=== PATIENT | male | born 1945 | race Caucasian/White ===

== ENCOUNTER 2023-09-19 11:08 | Outpatient (AMB) | payer OTHER, SELFPAY ==
--- NOTE | 2023-09-19 11:19 | A.OFFVIS_ITS ---
Intake Vital Signs 09/19/23 11:37 09/19/23 11:52 09/19/23 12:44 Height 5 ft 8 in Weight 213 lb 6.519 oz BMI 32.4 BP 140/65 H 156/72 H 139/77 Blood Pressure Location Rt brachial Lt brachial Lt brachial Position Sitting Sitting Sitting Pulse 60 60 61 Intake Visit Reasons: IBS, Abd pain Intake Note: Patient presents to in office visit today as a new patient referred for IBS and abdominal pain. CC: Patient states he was diagnosed with IBS a long time ago and since them every time he has a GI issue this is attributed to IBS. Patient c/o RUQ abdominal pain, lower back pain, a lot of gas, and gas pain that goes all the way up to his shoulders. Pt states symptoms have gotten worse recently. Last colonoscopy was done on 03/27/22 and he was found to have diverticulosis. He also states having hemorrhoids and occasional blood from them. 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 He is referred by BRADEN Ramos of [facility]. PMX SANDRITA Ischemic cardiomyopathy Coronary artery disease Diabetes COPD High cholesterol History of [place] Nephrolithiasis GERD Depression/anxiety BPH OBESITY * THE SURGICAL HISTORY Tonsillectomy and adenoidectomy CABG COLONOSCOPY-2011 * THE ALLERGIES: NKDA * Original LABS: none in our system CT ABDOMEN PELVIS-02/27/2021-[facility] Enhance to [place], gallbladder, spleen within normal limits Chronic pancreatic parent time will volume loss/fatty infiltrate without mamadou pancreatic fat stranding. Chronic mild bilateral adrenal gland nodularity Moderate abdominal 8 order an iliac artery arthrosclerotic calcification Kidneys normal in size and position without hydronephrosis interval resolution of left-sided obstructive uropathy No intra-abdominal free air. No lymphadenopathy by CT. No peripherally enhancing drainable fluid collection. Colonic diverticulosis (sigmoid colon) without acute diverticulitis. 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 TODAY'S VISIT hE IS HERE TODAY WITH HIS WHO IS SUPPORTIVE He has been having pain in the lower bowel for many years and he has been told it is IBS. He has been told to live with it. He has had a couple of colonoscopies in [place] with Dr. Reddy. Apparently, all were negative except for TICS, last being about 1.5 years ago. His bowels vary between CIC and diarrhea but he is most bothered by the CIC phase. Recently, the pain has been increasing, and it radiates to his lower back, but he also has OA of the hips and he is unsure what provokes what. It seems worse on the right side and he has pain daily, but some days it is minor and about 2-3 days a week it will be severe. He thinks it may be worse in the CIC phase, and the pain is relieved by laying down and applying heat. He had a trial of bentyl but this just made the CIC worse. Recently, he has had a lot of gas and bloating. This does not seem to be r/t types of foods eaten. The pain ranges from 2-3/10 to 8/10 at its worse. He will have sharp pains like lightening that move around the abdomen that don't last long but will make him cry out. He also has bad trouble with hemorrhoids. Recently, he had an EGD r/t swallowing problems with solid foods and with with liquids getting stuck at the [facility]. He thinks he may have been dilated but he is unsure. He has to eat very slowly. I do not want to do anything until I can get the records from Dr. Reddy's office hopefully we can get at least the endoscopy report and see if there is any barium swallow to try to identify why he has the swallowing issues. It also would be interesting to see if he visualize any abnormality of the ileocecal area. A I educate the patient and his about the finding on the 2020 CT scan and if this is found to still be true on another CT scan the solution to his problems may be surgical. This usually unusual to be able to resolve symptoms of somebody who is suffering from this type of congenital aberration without surgery. ROV after CT PFSH Surgical History History of esophagogastroduodenoscopy (EGD) H/O colonoscopy Hx of CABG History of tonsillectomy and adenoidectomy Family History Brother Heart disease Social History Alcohol intake: never Patient Tobacco Use Status: Former Tobacco user Years Smoked: 14-15 Non Cigarette Tobacco use Quit date or years: quit on 1983 Use of substances other than those prescribed or required for medical reasons: No Review of Systems Const Denies fatigue, Denies fever(s), Denies night sweats, Denies poor appetite and Denies weight loss ENT Reports Normal hearing present, Denies dental pain, Reports dysphagia, Denies hearing loss, Denies mouth pain, Denies odynophagia, Denies throat swelling, Denies tongue swelling and Reports other (Dentition adequate) Card Reports no additional complaints Resp Reports no additional complaints GI Reports abdominal pain, Denies melena, Reports bloating, Denies hematochezia, Denies constipation, Denies GI cramping, Reports dysphagia, Denies excessive flatus, Denies early satiety, Denies heartburn, Reports diarrhea, Reports loose stools, Denies nausea, Denies odynophagia, Denies vomiting and Denies hematemesis Musc Reports back pain and Reports arthralgias Skin/Breast Denies pruritus, Denies lesions, Denies rash and Denies jaundice Neuro Reports Normal hearing present and Denies Abnormal speech present Endo Denies fatigue Aller/Immun Denies throat swelling and Denies tongue swelling Physical Exam Vital Signs: Last Vital Signs Pulse 61 09/19/23 12:44 BP 139/77 09/19/23 12:44 BMI result Body Mass Index 32.4 Const General: cooperative, no acute distress, well developed and well groomed Nutritional Appearance: well nourished and obese Orientation/consciousness: oriented to person, oriented to place and oriented to time Limitations: No language barrier HEENT Head: Yes normocephalic and Yes atraumatic Eyes General: appearance normal, both eyes and all related structures Pupils: Equal, round and reactive pupils present Neck Neck: Yes normal visual inspection and Yes no lymphadenopathy Thyroid: Thyroid normal Resp Effort & Inspection: normal respiratory effort and able to speak in complete sentences Auscultation: clear to auscultation bilaterally Cardio Rate: regular rate Rhythm: regular rhythm Heart sounds: Normal, physiologic split S2 sound present Peripheral pulses: radial pulses present and posterior tibial pulses present GI Inspection: No distended, No Abdominal panniculus present and Yes obesity Palpation (GI): Soft to palpation, Tenderness to palpation present (GI) in the RLQ and periumbilically, no guarding, not rigid and No hepatosplenomegaly present Percussion: Yes normal to percussion Auscultation: normal bowel sounds Rectal Exam - Male: Yes deferred Skin General skin exam: no rashes or lesions noted, turgor normal, skin not dry, no jaundice, No spider nevi and no striae Rashes: no rashes Nails: normal Neuro General: oriented to person, oriented to place and oriented to time Cranial nerves: Yes Equal, round and reactive pupils present and Yes Normal hearing present Speech: No Abnormal speech present Extrem General: Yes normal to inspection, No clubbing, No cyanosis and No edema Psych Appearance: grossly normal and well kempt Mental Status: mental status grossly normal Speech and movement: Normal speech and movement present Affect: normal affect Attitude: cooperative Thought process: Normal thought process present and not confabulating Thought content: Normal thought content present Insight: Limited insight present (Psych) Judgement: Limited judgement present (Psych) Assessment & Plan Assessment & Plan (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 He has been told to live with it. He has had a couple of colonoscopies in [place] with Dr. Reddy. Apparently, all were negative except for TICS, last being about 1.5 years ago. His bowels vary between CIC and diarrhea but he is most bothered by the CIC phase. Recently, the pain has been increasing, and it radiates to his lower back, but he also has OA of the hips and he is unsure what provokes what. It seems worse on the right side and he has pain daily, but some days it is minor and about 2-3 days a week it will be severe. He thinks it may be worse in the CIC phase, and the pain is relieved by laying down and applying heat. He had a trial of bentyl but this just made the CIC worse. Recently, he has had a lot of gas and bloating. This does not seem to be r/t types of foods eaten. The pain ranges from 2-3/10 to 8/10 at its worse. He will have sharp pains like lightening that move around the abdomen that don't last long but will make him cry out. He also has bad trouble with hemorrhoids. Recently, he had an EGD r/t swallowing problems with solid foods and with with liquids getting stuck at the [facility]. He thinks he may have been dilated but he is unsure. He has to eat very slowly. I do not want to do anything until I can get the records from Dr. Reddy's office hopefully we can get at least the endoscopy report and see if there is any barium swallow to try to identify why he has the swallowing issues. It also would be interesting to see if he visualize any abnormality of the ileocecal area. A I educate the patient and his about the finding on the 2020 CT scan and if this is found to still be true on another CT scan the solution to his problems may be surgical. This usually unusual to be able to resolve symptoms of somebody who is suffering from this type of congenital aberration without surgery. ROV after CT Orders: Orders Transglutaminase IgA Today K56.2 - Volvulus, R10.33 - Periumbilical pain C Reactive Protein Today K56.2 - Volvulus, R10.33 - Periumbilical pain Pancreatic Elastase-1 Today K56.2 - Volvulus, R10.33 - Periumbilical pain Comprehensive Met. Panel Today K56.2 - Volvulus, R10.33 - Periumbilical pain Transglutaminase Ab IgG Today K56.2 - Volvulus, R10.33 - Periumbilical pain Calprotectin, Fecal Today K56.2 - Volvulus, R10.33 - Periumbilical pain CT abdomen pelvis w IV con Today K56.2 - Volvulus, R10.33 - Periumbilical pain Coding Level of Care Code New Pt Level 3 (60608) Diagnoses Cecal bascule K56.2 Periumbilical abdominal pain R10.33
[2023-09-19 11:37] VITALS: BP 140/65; PULSE 60; BMI 32.4
[2023-09-19 11:52] VITALS: BP 156/72; PULSE 60
[2023-09-19 12:44] VITALS: BP 139/77; PULSE 61
== END 2023-09-19 12:48 | disposition home or self-care (01) ==
PROVIDERS: PCP Internal Medicine; Visit Provider Nurse Practitioner
DX: K56.2 Volvulus (principal); R10.33 Periumbilical pain
CPT/HCPCS: 99203

== ENCOUNTER → 2023-09-19 11:08 | Outpatient (BNVA) | payer OTHER, SELFPAY | PROVIDERS: PCP Internal Medicine; Visit Provider Nurse Practitioner ==

== ENCOUNTER 2023-10-30 12:50 | Outpatient (REF) | payer MEDICARE, SELFPAY ==
--- NOTE | ~2023-10-30 | CT_ITS ---
EXAMINATION: CT ABDOMEN AND PELVIS WITH CONTRAST CLINICAL INFORMATION: Periumbilical pain COMPARISON: None available. TECHNIQUE: Multidetector volumetric images were obtained from the superior aspect of the liver through the pubic symphysis following administration 85 mL of Omnipaque 350 intravenous contrast. Sagittal and coronal reformatted images were obtained on the technologist's workstation. Oral contrast: No This CT examination was performed using dose optimization techniques as appropriate, variously including the following: *Automated exposure control *Adjustment of mA and/or kV according to patient size (this includes techniques or standardized protocols for targeted exams where dose is matched to indication/reason for exam; i.e. extremities or head) *Use of iterative reconstruction technique DLP: 616 mGy-cm FINDINGS: LUNG BASES: The visualized lung bases are unremarkable. LIVER, GALLBLADDER, AND BILIARY TREE: The liver is normal in size, shape, and attenuation. No focal hepatic lesion or biliary ductal dilatation is present. The gallbladder is unremarkable with no evidence of radiopaque gallstones, gallbladder wall thickening, or obvious pericholecystic inflammatory changes. PANCREAS: Unremarkable. SPLEEN: Unremarkable. ADRENAL GLANDS: Unremarkable. KIDNEYS AND URETERS: The kidneys are normal in size, shape, and attenuation. No hydronephrosis, hydroureter, or calculi seen. No perinephric stranding. BLADDER: Unremarkable. GASTROINTESTINAL TRACT: The stomach and duodenum are unremarkable. The large and small bowel are normal in caliber. Colonic diverticulosis without evidence to suggest diverticulitis. ABDOMINAL WALL: No ventral abdominal wall hernia. Bilateral fat-containing inguinal hernias. LYMPH NODES: Normal. VASCULAR: Unremarkable. PELVIC VISCERA: The prostate is enlarged. OSSEOUS STRUCTURES: Unremarkable. CT/CT abdomen pelvis w IV con IMPRESSION: 1. No ventral or periumbilical abdominal hernia. 2. Diverticulosis without evidence of diverticulitis. 3. Prostatomegaly. Fleischner guidelines were followed.
--- NOTE | ~2023-10-30 | CT_ITS ---
EXAMINATION: CT MAXILLOFACIAL WITHOUT CONTRAST CLINICAL INFORMATION: Sinonasal polyp. Acute sinusitis. COMPARISON: None available. TECHNIQUE: Multidetector helical imaging was performed in the axial plane with generation of coronal and sagittal reformatted images. This CT examination was performed using dose optimization techniques as appropriate, variously including the following: *Automated exposure control. *Adjustment of mA and/or kV according to patient size (this includes techniques or standardized protocols for targeted exams where dose is matched to indication/reason for exam; i.e. extremities or head). *Use of iterative reconstruction technique. DLP: 616 mGy-cm FINDINGS: FRONTAL SINUSES AND DRAINAGE PATHWAYS: Minimal mucosal thickening of the frontal sinuses. The frontoethmoidal recesses are patent. MAXILLARY SINUSES AND DRAINAGE PATHWAYS: Minimal mucosal thickening of the maxillary sinuses. The maxillary ostia and infundibula are patent. ETHMOID SINUSES: Minimal mucosal thickening of the ethmoid air cells. The ethmoid roofs appear symmetric and intact. SPHENOID SINUS AND DRAINAGE PATHWAYS: The sphenoid sinus is clear. The sphenoethmoidal recesses are patent. NASAL PASSAGE: Mild mucosal thickening of the nasal passages. Moderate leftward nasal septal deviation with spurring. ADDITIONAL RELEVANT FINDINGS: The lamina papyracea are intact. Bilateral lens extractions. Otherwise, no demonstrated abnormalities of the orbits. The carotid canals are normally covered by bone. No significant maxillary periapical disease. The temporomandibular joints are normal. The mastoid air cells and middle ear cavities remain well aerated. Calcific atherosclerotic disease of the intracranial internal carotid and vertebral arteries. Proportional prominence of the ventricles and sulcal spaces without evidence of obstructive hydrocephalus. Otherwise, limited evaluation of the intracranial structures without significant abnormalities. CT/CT sinus wo IV con IMPRESSION: 1. Mild sinonasal mucosal disease. 2. Moderate leftward nasal septal deviation with spurring.
[2023-10-30 15:45] LABS: Alanine Aminotransferase 14 U/L (0-40); Albumin Level 4.4 g/dL (3.5-5.0); Alkaline Phosphatase 49 U/L (39-117); Anion Gap 11 (12-20); Aspartate Amino Transferase 17 U/L (5-37); Bilirubin Total 0.6 mg/dL (0.0-1.0); Blood Urea Nitrogen 15 mg/dL (9-16); C Reactive Protein < 0.04 mg/dL (< or = 0.50); Calcium 11.3 mg/dL (8.4-10.2); Carbon Dioxide 28 mmol/L (22-29); Chloride 107 mmol/L (96-108); Estimated Glomerular Filt Rate > 60; Glucose Random 109 mg/dL (60-115); Potassium 4.3 mmol/L (3.3-5.1); Sodium 142 mmol/L (135-145); Total Protein 7.7 g/dL (6.5-8.0)
[2023-10-30] MEDS: iohexoL 350 MG/ML 75 ML INFUS..BTL 85 ML IV (16:02)
[2023-10-30] MEDS: Barium Sulfate Oral (Mocha) 450 ML ORAL.SUSP 900 ML PO (16:02)
[2023-10-31 12:43] LABS: Creatinine POC 0.8 mg/dL (0.5-1.4); GFR POC > 60
[2023-10-31 19:34] LABS: Transglutaminase Ab IgG <1.0 U/mL; Transglutaminase IgA <1.0 U/mL
== END 2023-10-30 12:51 | disposition home or self-care (01) ==
LOC: HO.CT 12:50
PROVIDERS: PCP Internal Medicine; Visit Provider Nurse Practitioner
DX: R10.33 Periumbilical pain (principal); K56.2 Volvulus; J33.0 Polyp of nasal cavity; J01.90 Acute sinusitis, unspecified
CPT/HCPCS: 36415; 70486; 74177; 80053; 82565; 86140; 86364; Q9967

== ENCOUNTER 2023-12-10 10:32 | Outpatient (AMB) | payer MEDICARE, SELFPAY ==
--- NOTE | 2023-12-10 10:37 | MHC.OFFVIS ---
Intake Vital Signs 12/10/23 11:05 Height 5 ft 8 in Weight 214 lb 11.684 oz BMI 32.6 BP 144/83 H Blood Pressure Location Lt brachial Position Sitting Pulse 63 Intake Visit Reasons: Follow up Intake Note: Dixon returns to in office follow up of CT and labs. CC: Patient reports feeling the same having gas, abdominal pain, and lower back pain. 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 He has been told to live with it. He has had a couple of colonoscopies in [place] with Dr. Reddy. Apparently, all were negative except for TICS, last being about 1.5 years ago. His bowels vary between CIC and diarrhea but he is most bothered by the CIC phase. Recently, the pain has been increasing, and it radiates to his lower back, but he also has OA of the hips and he is unsure what provokes what. It seems worse on the right side and he has pain daily, but some days it is minor and about 2-3 days a week it will be severe. He thinks it may be worse in the CIC phase, and the pain is relieved by laying down and applying heat. He had a trial of bentyl but this just made the CIC worse. Recently, he has had a lot of gas and bloating. This does not seem to be r/t types of foods eaten. The pain ranges from 2-3/10 to 8/10 at its worse. He will have sharp pains like lightening that move around the abdomen that don't last long but will make him cry out. He also has bad trouble with hemorrhoids. Recently, he had an EGD r/t swallowing problems with solid foods and with with liquids getting stuck at the [facility]. He thinks he may have been dilated but he is unsure. He has to eat very slowly. I do not want to do anything until I can get the records from Dr. Reddy's office hopefully we can get at least the endoscopy report and see if there is any barium swallow to try to identify why he has the swallowing issues. It also would be interesting to see if he visualize any abnormality of the ileocecal area. A I educate the patient and his about the finding on the 2020 CT scan and if this is found to still be true on another CT scan the solution to his problems may be surgical. This usually unusual to be able to resolve symptoms of somebody who is suffering from this type of congenital aberration without surgery. ROV after CT Orders: Orders Transglutaminase I gA Today K56.2 - Volvulus, R10.33 - Periumbil ical pain C Reactive Protein Today K56.2 - Volvulus, R10.33 - Periumbil ical pain Pancreatic Elastas e-1 Today K56.2 - Volvulus, R10.33 - Periumbil ical pain Comprehensive Met. Panel Today K56.2 - Volvulus, R10.33 - Periumbil ical pain Transglutaminase A b IgG Today K56.2 - Volvulus, R10.33 - Periumbil ical pain Calprotectin, Feca l Today K56.2 - Volvulus, R10.33 - Periumbil ical pain CT abdomen pelvis w IV con Today K56.2 - Volvulus, R10.33 - Periumbil ical pain LABS: Laboratory Tests 10/30/23 10/30/23 13:15 15:34 POC GFR > 60 Total Bilirubin 0.6 AST 17 ALT 14 Alkaline Phosphata se 49 C-Reactive Protein < 0.04 Tiss Transglutamin IgG <1.0 Tiss Transglutamin IgA <1.0 CT ABDOMEN AND PELVIS. 10/31/23 FINDINGS: LUNG BASES: The visualized lung bases are unremarkable. LIVER, GALLBLADDER, AND BILIARY TREE: The liver is normal in size, shape, and attenuation. No focal hepatic lesion or biliary ductal dilatation is present. The gallbladder is unremarkable with no evidence of radiopaque gallstones, gallbladder wall thickening, or obvious pericholecystic inflammatory changes. PANCREAS: Unremarkable. SPLEEN: Unremarkable. ADRENAL GLANDS: Unremarkable. KIDNEYS AND URETERS: The kidneys are normal in size, shape, and attenuation. No hydronephrosis, hydroureter, or calculi seen. No perinephric stranding. BLADDER: Unremarkable. GASTROINTESTINAL TRACT: The stomach and duodenum are unremarkable. The large and small bowel are normal in caliber. Colonic diverticulosis without evidence to suggest diverticulitis. ABDOMINAL WALL: No ventral abdominal wall hernia. Bilateral fat-containing inguinal hernias. LYMPH NODES: Normal. VASCULAR: Unremarkable. PELVIC VISCERA: The prostate is enlarged. OSSEOUS STRUCTURES: Unremarkable. CT/CT abdomen pelvis w IV con IMPRESSION: 1. No ventral or periumbilical abdominal hernia. 2. Diverticulosis without evidence of diverticulitis. 3. Prostatomegaly. TODAY'S VISIT He has not done the stool samples. [address] and he has bilateral inguinal hernias, no ventral hernia and his mid abd problems are most likely rectus abdominis. I explain that this does not effect his internal organs. He continues on her CIC alt with diarrhea, the CIC phase bothering him the most. We discuss fiber and taking a small amt of Miralax daily (he usually waits until he is very backed up before taking it). His says that the EGD was several yeas ago, and likely was at [facility] - so getting report may be difficult. Same with the 2020 CT scan. They will check with the PCP for these reports. He does not feel he needs an endoscopy at this time. He says he can live with his dysphagia of pills, but its the mental part of this that bothers me the most, as he tends to worry a lot about cancer if he has more pain or pain that is different than before. He has a lot of health anxiety. He is concerned re: the groin pain. I doubt this is bowel as the pains are GI in origin since this is intermittent and the pains are sharp and short lived. He is already seeing and OA doctor for his bad back and neck, and a urologist which are 2 specialties that I mentioned as possible sources to investigate his pains. ROV 3 mos. PFSH Surgical History History of esophagogastroduodenoscopy (EGD) H/O colonoscopy Hx of CABG History of tonsillectomy and adenoidectomy Family History Brother Heart disease Social History Alcohol intake: never Patient Tobacco Use Status: Former Tobacco user Years Smoked: 14-15 Review of Systems Const Denies fatigue, Denies fever(s), Denies night sweats, Denies poor appetite and Denies weight loss ENT Reports Normal hearing present, Denies dental pain, Reports dysphagia, Denies hearing loss, Denies mouth pain, Denies odynophagia, Denies throat swelling, Denies tongue swelling and Reports other (Dentition adequate) Card Reports no additional complaints Resp Reports no additional complaints GI Details: Denies abdominal pain, Denies melena, Denies bloating, Denies hematochezia, Denies constipation, Denies GI cramping, Reports dysphagia, Denies excessive flatus, Denies early satiety, Reports heartburn, Denies diarrhea, Denies nausea, Denies odynophagia, Denies vomiting and Denies hematemesis Musc Details: Groin pain Skin/Breast Denies pruritus, Denies lesions, Denies rash and Denies jaundice Neuro Reports Normal hearing present and Denies Abnormal speech present Psych Reports anxiety Endo Denies fatigue Aller/Immun Denies throat swelling and Denies tongue swelling Physical Exam Vital Signs: Last Vital Signs Pulse 63 12/10/23 11:05 BP 144/83 H 12/10/23 11:05 BMI result Body Mass Index 32.6 Const General: cooperative, no acute distress, well developed and well groomed Nutritional Appearance: well nourished and obese Orientation/consciousness: oriented to person, oriented to place and oriented to time Limitations: No language barrier HEENT Head: Yes normocephalic and Yes atraumatic Eyes General: appearance normal, both eyes and all related structures Pupils: Equal, round and reactive pupils present Neck Neck: Yes normal visual inspection and Yes no lymphadenopathy Thyroid: Thyroid normal Resp Effort & Inspection: normal respiratory effort and able to speak in complete sentences Auscultation: clear to auscultation bilaterally Cardio Rate: regular rate Rhythm: regular rhythm Heart sounds: Normal, physiologic split S2 sound present Peripheral pulses: radial pulses present and posterior tibial pulses present GI Inspection: No distended, No Abdominal panniculus present and Yes obesity Palpation (GI): Soft to palpation, nontender, no guarding, not rigid and No hepatosplenomegaly present Percussion: Yes normal to percussion Auscultation: normal bowel sounds Rectal Exam - Male: Yes deferred Skin General skin exam: no rashes or lesions noted, turgor normal, skin not dry, no jaundice, No spider nevi and no striae Rashes: no rashes Nails: normal Neuro General: oriented to person, oriented to place and oriented to time Cranial nerves: Yes Equal, round and reactive pupils present and Yes Normal hearing present Speech: No Abnormal speech present Extrem General: Yes normal to inspection, No clubbing, No cyanosis and No edema Psych Appearance: grossly normal and well kempt Mental Status: mental status grossly normal Speech and movement: Normal speech and movement present Affect: normal affect Attitude: cooperative Thought process: Normal thought process present and not confabulating Thought content: Normal thought content present Insight: Limited insight present (Psych) Judgement: Limited judgement present (Psych) Results Reviewed Results Reviewed: Laboratory Tests 10/30/23 10/30/23 13:15 15:34 POC GFR > 60 Total Bilirubin 0.6 AST 17 ALT 14 Alkaline Phosphatase 49 C-Reactive Protein < 0.04 Tiss Transglutamin IgG <1.0 Tiss Transglutamin IgA <1.0 CT ABDOMEN AND PELVIS. 10/31/23 FINDINGS: LUNG BASES: The visualized lung bases are unremarkable. LIVER, GALLBLADDER, AND BILIARY TREE: The liver is normal in size, shape, and attenuation. No focal hepatic lesion or biliary ductal dilatation is present. The gallbladder is unremarkable with no evidence of radiopaque gallstones, gallbladder wall thickening, or obvious pericholecystic inflammatory changes. PANCREAS: Unremarkable. SPLEEN: Unremarkable. ADRENAL GLANDS: Unremarkable. KIDNEYS AND URETERS: The kidneys are normal in size, shape, and attenuation. No hydronephrosis, hydroureter, or calculi seen. No perinephric stranding. BLADDER: Unremarkable. GASTROINTESTINAL TRACT: The stomach and duodenum are unremarkable. The large and small bowel are normal in caliber. Colonic diverticulosis without evidence to suggest diverticulitis. ABDOMINAL WALL: No ventral abdominal wall hernia. Bilateral fat-containing inguinal hernias. LYMPH NODES: Normal. VASCULAR: Unremarkable. PELVIC VISCERA: The prostate is enlarged. OSSEOUS STRUCTURES: Unremarkable. CT/CT abdomen pelvis w IV con IMPRESSION: 1. No ventral or periumbilical abdominal hernia. 2. Diverticulosis without evidence of diverticulitis. 3. Prostatomegaly. Assessment & Plan Assessment & Plan (1) Bilateral inguinal hernia: Code(s): K40.20 - Bilateral inguinal hernia, without obstruction or gangrene, not specified as recurrent (2) Periumbilical abdominal pain: Code(s): R10.33 - Periumbilical pain (3) Irritable bowel syndrome with both constipation and diarrhea: Code(s): K58.2 - Mixed irritable bowel syndrome Plan He has not done the stool samples. [address] and he has bilateral inguinal hernias, no ventral hernia and his mid abd problems are most likely rectus abdominis. I explain that this does not effect his internal organs. He continues on her CIC alt with diarrhea, the CIC phase bothering him the most. We discuss fiber and taking a small amt of Miralax daily (he usually waits until he is very backed up before taking it). His says that the EGD was several yeas ago, and likely was at [facility] - so getting report may be difficult. Same with the [address] scan[address] They will check with the PCP for these reports. He does not feel he needs an endoscopy at this time. He says he can live with his dysphagia of pills, but its the mental part of this that bothers me the most, as he tends to worry a lot about cancer if he has more pain or pain that is different than before. He has a lot of health anxiety. He is concerned re: the groin pain. I doubt this is bowel as the pains are GI in origin since this is intermittent and the pains are sharp and short lived. He is already seeing and OA doctor for his bad back and neck, and a urologist which are 2 specialties that I mentioned as possible sources to investigate his pains. ROV 3 mos. Orders: Referrals General Surgery Referral K40.20 - Bilateral inguinal hernia, without obstruction or gangrene, not specified as recurrent Coding Level of Care Code Est Pt Level 3 (83546) Diagnoses Bilateral inguinal hernia K40.20 Periumbilical abdominal pain R10.33 Irritable bowel syndrome with both constipation and diarrhea K58.2
[2023-12-10 11:05] VITALS: BP 144/83; PULSE 63; BMI 32.6
== END 2023-12-10 12:20 | disposition home or self-care (01) ==
PROVIDERS: PCP Internal Medicine; Visit Provider Nurse Practitioner
DX: K40.20 Bilateral inguinal hernia, without obstruction or gangrene, not specified as recurrent (principal); R10.33 Periumbilical pain; K58.2 Mixed irritable bowel syndrome
CPT/HCPCS: 99213

== ENCOUNTER → 2023-12-10 10:32 | Outpatient (BNVA) | payer MEDICARE, SELFPAY | PROVIDERS: PCP Internal Medicine; Visit Provider Nurse Practitioner | DX: K40.20 Bilateral inguinal hernia, without obstruction or gangrene, not specified as recurrent (principal); R10.33 Periumbilical pain; K58.2 Mixed irritable bowel syndrome | CPT/HCPCS: 99212 ==

== ENCOUNTER 2024-03-11 10:11 | Outpatient (AMB) | payer MEDICARE, SELFPAY ==
[2024-03-11 10:15] VITALS: BP 140/74; PULSE 64; BMI 32.8
--- NOTE | 2024-03-11 10:15 | MHC.OFFVIS ---
Vital Signs 03/11/24 10:15 Height 5 ft 8 in Weight 215 lb 9.793 oz BMI 32.8 BP 140/74 H Blood Pressure Location Lt brachial Position Sitting Pulse 64 Intake Visit Reasons: 3 month follow up IBS-M, GERD Intake Note: Dixon presents in office 3 months follow up of IBS. CC: Patient c/o nausea occaionaly, constipation, gas, abdominal bloating, and occasional diarrhea. 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 [address] and he has bilateral inguinal hernias, no ventral hernia and his mid abd problems are most likely rectus abdominis. I explain that this does not effect his internal organs. He continues on her CIC alt with diarrhea, the CIC phase bothering him the most. We discuss fiber and taking a small amt of Miralax daily (he usually waits until he is very backed up before taking it). His says that the EGD was several yeas ago, and likely was at [facility] - so getting report may be difficult. Same with the [address] scan[address] They will check with the PCP for these reports. He does not feel he needs an endoscopy at this time. He says he can live with his dysphagia of pills, but its the mental part of this that bothers me the most, as he tends to worry a lot about cancer if he has more pain or pain that is different than before. He has a lot of health anxiety. He is concerned re: the groin pain. I doubt this is bowel as the pains are GI in origin since this is intermittent and the pains are sharp and short lived. He is already seeing and OA doctor for his bad back and neck, and a urologist which are 2 specialties that I mentioned as possible sources to investigate his pains. ROV 3 mos. Orders: Referrals General Surgery Referral K40.20 - Bilateral inguinal hernia, without obstruction or gangrene, not specified as recurrent TODAY'S VISIT He is here today with his who is supportive. HIs bowels are improved with the fiber addition any my grapes. He is using Miralax less because of this. His says his groin pain is worse bilaterally and this may be his hernias - he did not follow through to see surgery about this. Also could be his back problems. I encouraged them to at least speak with General surgery to see if they think this is part of the problem and if surgery is a viable option for him. He is having gait ataxia, falls forward when bending, like I'm drunk but I don't drink and a tremor. [facility] says he needs neurologist but did not refer him. I refer him. ? UC/crohns and this is not likely but we discuss how this is diagnose in why I do not think that this is part of the differential diagnosis. I offered to do stool calprotectin in other labs with a declined at this time. His last colonoscopy 2021 at [facility] and only tics. He has rectal bleeding likely hemorrhoidal - did give stool test. ROV 6 mos. [facility] Surgical History History of esophagogastroduodenoscopy (EGD) H/O colonoscopy Hx of CABG History of tonsillectomy and adenoidectomy Family History Brother Heart disease Social History Alcohol intake: never Patient Tobacco Use Status: Former Tobacco user Years Smoked: 14-15 Review of Systems Const Denies fatigue, Denies fever(s), Denies night sweats, Denies poor appetite and Denies weight loss ENT Reports Normal hearing present, Denies dental pain, Denies dysphagia, Denies hearing loss, Denies mouth pain, Denies odynophagia, Reports disequilibrium, Denies throat swelling, Denies tongue swelling and Reports other (Dentition adequate) Card Reports no additional complaints Resp Reports no additional complaints GI Details: Reports abdominal pain (Mostly in the groin), Denies melena, Denies bloating, Denies hematochezia, Denies constipation, Denies GI cramping, Denies dysphagia, Denies excessive flatus, Denies early satiety, Denies heartburn, Denies diarrhea, Denies nausea, Denies odynophagia, Denies vomiting and Denies hematemesis Musc Reports abnormal gait, Reports back pain, Reports myalgias, Reports arthralgias and Reports muscle weakness Skin/Breast Denies pruritus, Denies lesions, Denies rash and Denies jaundice Neuro Reports Normal hearing present, Denies Abnormal speech present, Reports abnormal gait, Reports lack of coordination and Reports disequilibrium Endo Denies fatigue Aller/Immun Denies throat swelling and Denies tongue swelling Physical Exam Vital Signs: Last Vital Signs Pulse 64 03/11/24 10:15 BP 140/74 H 03/11/24 10:15 BMI result Body Mass Index 32.8 Const General: cooperative, no acute distress, well developed and well groomed Nutritional Appearance: well nourished and obese Orientation/consciousness: oriented to person, oriented to place and oriented to time Limitations: No language barrier HEENT Head: Yes normocephalic and Yes atraumatic Eyes General: appearance normal, both eyes and all related structures Pupils: Equal, round and reactive pupils present Neck Neck: Yes normal visual inspection and Yes no lymphadenopathy Thyroid: Thyroid normal Resp Effort & Inspection: normal respiratory effort and able to speak in complete sentences Auscultation: clear to auscultation bilaterally Cardio Rate: regular rate Rhythm: regular rhythm Heart sounds: Normal, physiologic split S2 sound present Peripheral pulses: radial pulses present and posterior tibial pulses present GI Inspection: No distended, No Abdominal panniculus present and Yes obesity Palpation (GI): Soft to palpation, nontender, no guarding, not rigid and No hepatosplenomegaly present Percussion: Yes normal to percussion Auscultation: normal bowel sounds Rectal Exam - Male: Yes deferred Skin General skin exam: no rashes or lesions noted, turgor normal, skin not dry, no jaundice, No spider nevi and no striae Rashes: no rashes Nails: normal Neuro General: oriented to person, oriented to place and oriented to time Cranial nerves: Yes Equal, round and reactive pupils present and Yes Normal hearing present Speech: No Abnormal speech present Extrem General: Yes normal to inspection, No clubbing, No cyanosis and No edema Psych Appearance: grossly normal and well kempt Mental Status: mental status grossly normal Speech and movement: Slowed speech present (Psych) Affect: normal affect Attitude: cooperative Thought process: not confabulating and Impoverished thought process present Thought content: Normal thought content present Insight: Limited insight present (Psych) Judgement: Limited judgement present (Psych) Assessment & Plan Assessment & Plan (1) Irritable bowel syndrome with both constipation and diarrhea: Code(s): K58.2 - Mixed irritable bowel syndrome Category: Medical (2) Bilateral inguinal hernia: Code(s): K40.20 - Bilateral inguinal hernia, without obstruction or gangrene, not specified as recurrent Category: Medical (3) Periumbilical abdominal pain: Code(s): R10.33 - Periumbilical pain Category: Medical (4) GERD (gastroesophageal reflux disease): Code(s): K21.9 - Gastro-esophageal reflux disease without esophagitis Category: Medical (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 HIs bowels are improved with the fiber addition any my grapes. He is using Miralax less because of this. His says his groin pain is worse bilaterally and this may be his hernias - he did not follow through to see surgery about this. Also could be his back problems. I encouraged them to at least speak with General surgery to see if they think this is part of the problem and if surgery is a viable option for him. He is having gait ataxia, falls forward when bending, like I'm drunk but I don't drink and a tremor. [facility] tx center says he needs neurologist but did not refer him. I refer him. ? UC/crohns and this is not likely but we discuss how this is diagnose in why I do not think that this is part of the differential diagnosis. I offered to do stool calprotectin in other labs with a declined at this time. His last colonoscopy 2021 at [facility] and only tics. He has rectal bleeding likely hemorrhoidal - did give stool test. ROV 6 mos. Orders: Referrals Neurology Referral R25.1 - Tremor, unspecified, R48.2 - Apraxia Coding Level of Care Code Est Pt Level 3 (44040) Diagnoses Irritable bowel syndrome with both constipation and diarrhea K58.2 Bilateral inguinal hernia K40.20 Periumbilical abdominal pain R10.33 GERD (gastroesophageal reflux disease) K21.9 Gait apraxia R48.2 Tremor R25.1
== END 2024-03-11 11:00 | disposition home or self-care (01) ==
PROVIDERS: PCP Internal Medicine; Visit Provider Nurse Practitioner
DX: K58.2 Mixed irritable bowel syndrome (principal); K40.20 Bilateral inguinal hernia, without obstruction or gangrene, not specified as recurrent; R10.33 Periumbilical pain; K21.9 Gastro-esophageal reflux disease without esophagitis; R48.2 Apraxia; R25.1 Tremor, unspecified
CPT/HCPCS: 99213

== ENCOUNTER → 2024-03-11 10:11 | Outpatient (BNVA) | payer MEDICARE, SELFPAY | PROVIDERS: PCP Internal Medicine; Visit Provider Nurse Practitioner | DX: K58.2 Mixed irritable bowel syndrome (principal); K21.9 Gastro-esophageal reflux disease without esophagitis; K40.20 Bilateral inguinal hernia, without obstruction or gangrene, not specified as recurrent; R10.33 Periumbilical pain; R48.2 Apraxia; R25.1 Tremor, unspecified | CPT/HCPCS: 99212 ==

== ENCOUNTER 2024-04-06 09:14 | Outpatient (AMB) | payer MEDICARE, SELFPAY ==
--- NOTE | 2024-04-06 09:20 | MHC.OFFVIS ---
Vital Signs 04/06/24 09:31 Height 5 ft 8 in Weight 217 lb BMI 33.0 BP 192/84 H Blood Pressure Location Rt brachial Position Sitting Pulse 69 Intake Visit Reasons: Bilateral inguinal hernia Intake Note: Patient referred by Caity Yao PA-C (GI) for bilateral inguinal hernia. Patient c/o: lower abdominal pain that comes and goes. Diarrhea, constipation. ABD CT: 10-30-2023. 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 He is having groin pain left greater than right. He does not do heavy lifting anymore. He does have chronic cough and constipation/GI issues/irritable bowel syndrome With frequent/forcing bowel movements over many years time Patient is otherwise tolerating his diet. Patient has a moderate amount of comorbidities. Patient has listed in his problem list cecal bascule but has never had any abdominal surgery [facility] Surgical History History of esophagogastroduodenoscopy (EGD) H/O colonoscopy Hx of CABG History of tonsillectomy and adenoidectomy Family History Brother Heart disease Social History Alcohol intake: never Patient Tobacco Use Status: Former Tobacco user Years Smoked: 14-15 Physical Exam Vital Signs: Last Vital Signs Pulse 69 04/06/24 09:31 BP 192/84 H 04/06/24 09:31 BMI result Body Mass Index 33.0 Chest Other: Chest breath sounds bilaterally, HS 1 in 2 GI Other: Patient was examined both supine and standing with Valsalva. Abdomen moderately corpulent, benign. No umbilical hernia. Right groin inguinal weakness but no obvious hernia. Genitalia grossly within normal limits. Moderately sized left inguinal hernia reducible Assessment & Plan Assessment & Plan (1) Left inguinal hernia: Code(s): K40.90 - Unilateral inguinal hernia, without obstruction or gangrene, not specified as recurrent Category: Surgical Plan Therapeutic options were discussed with the patient's which include observation or surgical repair. Risks, benefits, and alternatives of open left inguinal hernia repair with mesh were reviewed with them and included but not limited to bleeding, infection, recurrence, numbness, pain, scarring and wished to proceed with the procedure. All questions answered. Arrangements made for this. Coding Level of Care Code New Pt Level 5 (92790) Diagnoses Left inguinal hernia K40.90
[2024-04-06 09:31] VITALS: BP 192/84; PULSE 69; BMI 33.0
== END 2024-04-06 09:55 | disposition home or self-care (01) ==
PROVIDERS: PCP Internal Medicine; Referring Provider Nurse Practitioner; Visit Provider Surgery
DX: K40.90 Unilateral inguinal hernia, without obstruction or gangrene, not specified as recurrent (principal)
CPT/HCPCS: 99204

== ENCOUNTER → 2024-04-06 09:14 | Outpatient (BNVA) | payer MEDICARE, SELFPAY | PROVIDERS: PCP Internal Medicine; Referring Provider Nurse Practitioner; Visit Provider Surgery | DX: K40.90 Unilateral inguinal hernia, without obstruction or gangrene, not specified as recurrent (principal) | CPT/HCPCS: 99202 ==

== ENCOUNTER → 2024-05-27 09:55 | Outpatient (REF) | payer MEDICARE, SELFPAY ==
--- NOTE | 2024-05-27 09:59 | CA_ITS ---
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 Normal LV ejection fraction of 55-60% with pseudonormal filling pattern with elevated LVEDP 2. Mildly dilated left atrium 3. Mild aortic stenosis and mild mitral regurgitation 4. Normal RV systolic pressure 5. No pericardial effusion Findings Procedure Information Contrast agent, definity, is being given per protocol without apparent complications. Left Ventricle Normal left ventricular size, thickness, and systolic function. The visually estimated ejection fraction is between 55-60%. Spectral Doppler is indicative of a pseudonormal filling pattern. Elevated left ventricular end diastolic pressure. E/E prime ratio is between 8 and 15 consistent with indeterminate filling pressures. Wall Motion Rest Echo Findings The basal inferior, basal anterolateral, basal inferoseptal, and basal inferolateral segments are hypokinetic. All other scored wall segments showed normal motion. Right Ventricle Normal right ventricular cavity size and systolic function. Atria The left atrium is mildly dilated. Interatrial shunt cannot be excluded. The right atrium is normal in size. Aortic Valve The aortic valve was not well visualized. There is mild calcification of the aortic valve. There is mild aortic valve stenosis. The peak aortic velocity is 1.79 m/s with a calculated peak gradient of 13 mmHg. The mean gradient is 7 mmHg. The aortic valve area is 1.77 cm2. There is no aortic valve regurgitation. Mitral Valve There is mild anterior and posterior mitral leaflet thickening. There is mild mitral annular calcification. There is mild mitral valve regurgitation. There is no mitral valve stenosis. Pulmonic Valve The pulmonic valve is likely normal. Tricuspid Valve Likely normal tricuspid valve structure and function. There is mild tricuspid valve regurgitation. The right ventricular systolic pressure is normal. The right ventricular systolic pressure is 31 mmHg. Normal right atrial pressure. There is no evidence of pulmonary hypertension. Great Vessels The pulmonary artery was not well visualized. Moderate plaque is seen in the sino tubular ridge. Venous The inferior vena cava is normal in size and collapses greater than 50% with inspiration. Pericardium/Pleural There is no evidence of pericardial effusion. Prior Study Comparison No prior study available for comparison. Measurements 2D Linear Measurements IVSd: 1.12 0.6-0.9/0.6-1.0 cm LVIDd: 4.26 3.9-5.3/4.2-5.9 cm LVIDd Index: 2.00 2.4-3.2/2.2-3.1 cm/m2 LVIDs: 2.84 2.0-3.6 cm LVPWd: 1.14 0.7-1.1 cm LA Diam: 4.10 2.7-3.8/3.0-4.0 cm LAIDs Index: 1.92 1.5-2.3 cm/m2 LV Mass: 207.85 67-162/88-224 g LV Mass Index: 97.58 43-95/49-115 g/m2 LVOT Diam: 2.10 3.0+(-)1.3 cm 2D Systolic Function EF 4C: 57.50 >55% EF 2C: 58.90 >55% EF BiP: 57.40 >55% Mitral Valve MV Pk E: 0.96 MV PK A: 0.56 MV Decel Time: 207.00 E/A: 1.70 E'Lateral: 8.16 E'Medial: 6.09 E/E' Med: 15.80 E/E' Lat: 11.80 PHT: 61.00 MVA PHT: 3.61 Decel [place]: 4.64 Aortic Valve AoV Pk Adalberto: 1.79 AoV Mn Adalberto: 1.19 AoV VTI: 0.40 AoV Pk Grad: 13.00 Aov Mn Grad: 7.00 LUZ Cont.VTI: 1.77 LVOT LVOT Pk Adalberto: 0.92 LVOT Mn Adalberto: 0.65 LVOT VTI: 0.20 LVOT Pk Grad: 3.00 LVOT Mn Grad: 2.00 LVOT Diam: 2.10 LVOT Area: 3.46 Diastolic Function MV Pk E: 0.96 MV Pk A: 0.56 E/A: 1.70 E'Medial: 6.09 E/E' Med: 15.80 E' Laterial: 8.16 E/E' Lat: 11.80 Right Ventricle TAPSE (mm): 18.00 TVS' Adalberto: 8.16 Tricuspid Valve TR Pk Adalberto: 2.40 TR Pk Grad: 23.00 RA Press: 8.00 RVSP: 31.00 Great Vessels Aorta Sinus of Valsalva: 3.29 2.0-3.[address] Ridge: 2.17 1.7-3.4 cm Ao Asc: 3.40 2.1-3.4 cm Updated in Other Vendor System with Status of Final Maximilian Catalan MD electronically signed on 05/27/2024 4:12:47 PM with status of Final
== END ==
LOC: HO.CARD 09:55
PROVIDERS: PCP Internal Medicine; Visit Provider Nurse Practitioner Family
DX: I25.810 Atherosclerosis of coronary artery bypass graft(s) without angina pectoris (principal); I25.5 Ischemic cardiomyopathy; I10 Essential (primary) hypertension
CPT/HCPCS: 93306; Q9957

== ENCOUNTER → 2024-05-27 09:59 | Outpatient (BNV) | payer MEDICARE, SELFPAY | PROVIDERS: PCP Internal Medicine; Visit Provider Internal Medicine Cardiovascular Disease | DX: I25.810 Atherosclerosis of coronary artery bypass graft(s) without angina pectoris (principal); I35.0 Nonrheumatic aortic (valve) stenosis; I34.0 Nonrheumatic mitral (valve) insufficiency; I36.1 Nonrheumatic tricuspid (valve) insufficiency | CPT/HCPCS: 93306 ==

== ENCOUNTER → 2024-06-11 09:37 | Outpatient (REF) | payer MEDICARE, SELFPAY ==
--- NOTE | ~2024-06-11 | NM_ITS ---
Lexiscan Myocardial perfusion study Indication: Preoperative cardiovascular risk stratification Technique: The patient was brought in for a Lexiscan perfusion study on 06/11/2024 and was injected 0.4 mg of Lexiscan intravenously. Within a minute of this injection 35 mCi of sestamibi was given intravenously. Images were obtained using the SPECT gamma camera interlaced with the gating device. Images were obtained in supine position. Resting perfusion study was performed on 06/15/2024. Patient was administered 35 mCi of sestamibi intravenously at rest. Images were then obtained in supine position. Images obtained with and without significant attenuation. Total DLP 159 mGy-cm. Images were processed with the software and compared side to side in short axis, horizontal long axis and vertical long axis views. Findings: The stress perfusion study showed nonattenuated images show mildly increased uptake in the basal inferior wall of the myocardium. Remainder of the LV myocardium is normally perfused. Attenuation corrected images show mildly increased uptake in the apex of the myocardium. The gated study shows mildly reduced LV systolic function with calculated LVEF of 45%. LV cavity is normal in size. The gated study shows normal systolic wall thickening and contraction of segments. Resting study shows no change in perfusion pattern compared to stress perfusion study. Gating at rest reveals normal systolic wall motion with ejection fraction at 48%. The findings are consistent with no evidence of reversible defect suggestive of ischemia. NM/NM jaelyn perf SPECT rest & str Impression: 1. Myocardial perfusion imaging study shows likely normal myocardial perfusion 2. Gated LVEF is 45% 3. Transient ischemic dilatation not present Nondiagnostic on EKG. Electronically signed by: Maximilian Catalan MD 06/15/2024 04:03 PM EDT
--- NOTE | 2024-06-11 09:41 | CA_ITS ---
Acquisition Time: 2024-06-11 09:58:34 Total Exercise Time: 00:02:00 Test Indications: CHEST PAIN, SOB Medications: Protocol: LEXISCAN Max HR: 093 BPM 65% of Pred: 143 BPM Max BP: 178/094 mmHG Max Work Load: 1.0 METS Pharmacological stress test with Lexiscan injection, while sitting and kicking his legs, without anginal symptoms, with isolated PACs, with normotensive response to injection, with nondiagnostic EKG for ischemia. Nuclear images pending. Test reivewed with Dr Euceda. Referred By: Ema Wilkinson Overread By: ISIDRO GOOD
== END ==
LOC: HO.CARD 09:37
PROVIDERS: PCP Internal Medicine; Visit Provider Nurse Practitioner Family
DX: Z01.810 Encounter for preprocedural cardiovascular examination (principal)
CPT/HCPCS: 78452; 93017; A9500; J0280; J2785

== ENCOUNTER → 2024-06-11 09:41 | Outpatient (BNV) | payer MEDICARE, SELFPAY | PROVIDERS: PCP Internal Medicine; Visit Provider Nurse Practitioner Family | DX: Z01.810 Encounter for preprocedural cardiovascular examination (principal) | CPT/HCPCS: 78452; 93016; 93018 ==

== ENCOUNTER 2024-06-13 14:12 | Outpatient (REF) | payer MEDICARE, SELFPAY ==
--- NOTE | ~2024-06-13 | MR_ITS ---
EXAMINATION: MR BRAIN WITHOUT CONTRAST CLINICAL INFORMATION: Dizziness, headaches, altered gait COMPARISON: None. TECHNIQUE: MRI of the brain was obtained using routine sequences without contrast. FINDINGS: No acute infarct. No acute intracranial hemorrhage or extra-axial fluid collection. Moderate global cerebral volume loss. Cavum septum lucidum. Patchy T2 FLAIR hyperintense foci in the subcortical and periventricular white matter and deep epps nuclei, nonspecific but presumably advanced chronic microangiopathy. No mass lesion, mass effect, or herniation pattern. Normal intracranial arterial and dural venous sinus flow voids. Normal appearance of the midline structures. Lens replacements. The paranasal sinuses and mastoids are well aerated. Incidental proteinaceous incisive canal cyst within the anterior midline maxilla. 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 MR/MR head/brain wo con IMPRESSION: 1. No acute intracranial abnormality. 2. 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 3. 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 Electronically signed by: Criss Vargas MD 06/28/2024 06:44 PM EDT
== END 2024-06-13 14:13 | disposition home or self-care (01) ==
LOC: HO.MRI 14:12
PROVIDERS: PCP Internal Medicine; Visit Provider Psychiatry & Neurology Neurology
DX: R26.9 Unspecified abnormalities of gait and mobility (principal)
CPT/HCPCS: 70551

== ENCOUNTER 2024-06-17 11:19 | Outpatient (REF) | payer MEDICARE, SELFPAY ==
[2024-06-17 12:43] LABS: Alanine Aminotransferase 11 U/L (0-40); Albumin Level 4.1 g/dL (3.5-5.0); Alkaline Phosphatase 43 U/L (39-117); Anion Gap 11 (12-20); Aspartate Amino Transferase 17 U/L (5-37); Bilirubin Total 0.5 mg/dL (0.0-1.0); Blood Urea Nitrogen 15 mg/dL (9-16); Calcium 10.9 mg/dL (8.4-10.2); Carbon Dioxide 27 mmol/L (22-29); Chloride 109 mmol/L (96-108); Cholesterol 121 mg/dL (<200); Estimated Glomerular Filt Rate 59; Glucose Random 133 mg/dL (60-115); HDL Cholesterol 41 mg/dL (>40); LDL Cholesterol Calculated 59 mg/dL (<100); Potassium 4.2 mmol/L (3.3-5.1); Sodium 143 mmol/L (135-145); Total Protein 7.1 g/dL (6.5-8.0); Triglycerides 108 mg/dL (<150)
== END 2024-06-17 11:20 | disposition home or self-care (01) ==
LOC: HO.LAB 11:19
PROVIDERS: PCP Internal Medicine; Visit Provider Nurse Practitioner Family
DX: E78.2 Mixed hyperlipidemia (principal)
CPT/HCPCS: 36415; 80053; 80061

== ENCOUNTER 2025-06-14 11:17 | Outpatient (AMB) | payer MEDICARE, SELFPAY ==
--- NOTE | 2025-06-14 11:21 | A.OFFVIS_ITS ---
Vital Signs 06/14/25 11:33 Height 5 ft 8 in Weight 207 lb 3.752 oz BMI 31.5 BP 131/80 Blood Pressure Location Lt brachial Position Sitting Pulse 69 Intake Visit Reasons: ibs Intake Note: Dixon presents to in office follow up of IBS. CC: States that he is having same symptoms as before. 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: No Allergies No Known Drug Allergies Allergy (Unknown, Verified 06/14/25 11:39) none Medication List - Last Reconciled 06/14/25 by VALENTE Rivera acetaminophen (Tylenol Extra Strength) 500 mg PO Q6H PRN alprazolam 0.5 mg PO BEDTIME PRN aspirin 81 mg PO DAILY duloxetine 60 mg PO DAILY furosemide 20 mg PO DAILY gabapentin 300 mg PO BID metformin 500 mg PO BID metoprolol succinate ER 50 mg PO DAILY nabumetone 500 mg PO BID nabumetone mg PO pantoprazole 40 mg PO DAILY simethicone (Gas Relief (simethicone)) 125 mg PO BID-QID PRN tamsulosin 0.4 mg PO BEDTIME HPI HPI ibs: Details: Assessment & Plan (1) Irritable bowel syndrome with both constipation and diarrhea: Code(s): K58.2 - Mixed irritable bowel syndrome Category: Medical (2) Bilateral inguinal hernia: Code(s): K40.20 - Bilateral inguinal hernia, without obstruction or gangrene, not specified as recurrent Category: Medical (3) Periumbilical abdominal pain: Code(s): R10.33 - Periumbilical pain Category: Medical (4) GERD (gastroesophageal reflux disease): Code(s): K21.9 - Gastro-esophageal reflux disease without esophagitis Category: Medical (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 HIs bowels are improved with the fiber addition any my grapes. He is using Miralax less because of this. His says his groin pain is worse bilaterally and this may be his hernias - he did not follow through to see surgery about this. Also could be his back problems. I encouraged them to at least speak with General surgery to see if they think this is part of the problem and if surgery is a viable option for him. He is having gait ataxia, falls forward when bending, like I'm drunk but I don't drink and a tremor. [facility] says he needs neurologist but did not refer him. I refer him. ? UC/crohns and this is not likely but we discuss how this is diagnose in why I do not think that this is part of the differential diagnosis. I offered to do stool calprotectin in other labs with a declined at this time. His last colonoscopy 2021 at [facility] and only tics. He has rectal bleeding likely hemorrhoidal - did give stool test. ROV 6 mos. Orders: Referrals Neurology Referral R25.1 - Tremor, unspecified, R48.2 - Apraxia TODAY'S VISIT [facility] Medical History (Updated 06/14/25 @ 15:47 by VALENTE Rivera) Periumbilical abdominal pain Surgical History (Updated 06/14/25 @ 15:47 by VALENTE Rivera) Left inguinal hernia History of esophagogastroduodenoscopy (EGD) H/O colonoscopy Hx of CABG History of tonsillectomy and adenoidectomy Family History Brother Heart disease Social History Alcohol intake: never Patient Tobacco Use Status: Former Tobacco user Years Smoked: 14-15 Review of Systems Const Reports fatigue, Denies fever(s), Denies night sweats, Denies poor appetite and Denies weight loss ENT Reports Normal hearing present, Denies dental pain, Denies dysphagia, Denies hearing loss, Denies mouth pain, Denies odynophagia, Denies throat swelling, Denies tongue swelling and Reports other (Dentition adequate) Card Reports no additional complaints Resp Reports no additional complaints GI Details: Denies abdominal pain, Denies melena, Reports bloating, Denies hematochezia, Reports constipation, Denies GI cramping, Denies dysphagia, Denies excessive flatus, Denies early satiety, Reports heartburn, Denies diarrhea, Reports loose stools, Denies nausea, Denies odynophagia, Denies vomiting and Denies hematemesis Musc Reports back pain Skin/Breast Denies pruritus, Denies lesions, Denies rash and Denies jaundice Neuro Reports Normal hearing present and Denies Abnormal speech present Psych Reports abnormal sleep pattern Endo Reports fatigue Aller/Immun Denies throat swelling and Denies tongue swelling Physical Exam Vital Signs: Last Vital Signs Pulse 69 06/14/25 11:33 BP 131/80 06/14/25 11:33 BMI result Body Mass Index 31.5 Const General: cooperative, no acute distress, well developed and well groomed Nutritional Appearance: well nourished and obese Orientation/consciousness: oriented to person, oriented to place and oriented to time Limitations: No language barrier HEENT Head: Yes normocephalic and Yes atraumatic Eyes General: appearance normal, both eyes and all related structures Pupils: Equal, round and reactive pupils present Neck Neck: Yes normal visual inspection and Yes no lymphadenopathy Thyroid: Thyroid normal Resp Effort & Inspection: normal respiratory effort and able to speak in complete sentences Auscultation: clear to auscultation bilaterally Cardio Rate: regular rate Rhythm: regular rhythm Heart sounds: Normal, physiologic split S2 sound present Peripheral pulses: radial pulses present and posterior tibial pulses present GI Inspection: No distended, No Abdominal panniculus present and Yes obesity Palpation (GI): Soft to palpation, nontender, no guarding, not rigid and No hepatosplenomegaly present Percussion: Yes normal to percussion Auscultation: normal bowel sounds Rectal Exam - Male: Yes deferred Skin General skin exam: no rashes or lesions noted, turgor normal, skin not dry, no jaundice, No spider nevi and no striae Rashes: no rashes Nails: normal Neuro General: oriented to person, oriented to place and oriented to time Cranial nerves: Yes Equal, round and reactive pupils present and Yes Normal hearing present Speech: No Abnormal speech present Extrem General: Yes normal to inspection, No clubbing, No cyanosis and No edema Psych Appearance: grossly normal and well kempt Mental Status: mental status grossly normal Speech and movement: Normal speech and movement present Affect: normal affect Attitude: cooperative Thought process: Normal thought process present and not confabulating Thought content: Normal thought content present Insight: Fair insight present (Psych) and Limited insight present (Psych) Judgement: Fair judgement present (Psych) and Limited judgement present (Psych) Assessment & Plan Assessment & Plan (1) GERD (gastroesophageal reflux disease): Code(s): K21.9 - Gastro-esophageal reflux disease without esophagitis Category: Medical (2) Irritable bowel syndrome with both constipation and diarrhea: Code(s): K58.2 - Mixed irritable bowel syndrome Category: Medical Plan HIS CURRENT GI REGIMEN CONSISTS OF MIRALAX, PANTOPRAZOLE, AND SAID THE SIMETHICONE. He is here today with his who is supportive - The patient is a 79-year-old male presenting with bowel irregularities and GERD. - Reports ongoing bowel irregularities characterized by intermittent constipation and diarrhea, with effective management using Miralax as needed to restore normal bowel function. - Hemorrhoids previously noted, currently asymptomatic due to reduced straining. - Experiences episodic abdominal fullness impacting respiration, currently improving. He is uncertain what causes this but does not desire any further workup at this time. - GERD is managed with pantoprazole, current status unspecified but suggests control of symptomatology. - Reports persistent fatigue, potentially associated with cardiac medications or poor sleep quality, with an inconclusive sleep apnea test result from a previous study. He also has noticed that his sleep pattern tends to be reversed staying awake at night and sleeping through the day. We discussed a possible trial of melatonin for this, but his also feels that he simply has gotten into bed sleeping habits. He says he has tried CPAP but refuses it because ?it feels too much like an octopus hooked up to me. ? Return office visit as needed Medications: New pantoprazole 40 mg PO DAILY 30 tabs 12RF simethicone (Gas Relief (simethicone)) 125 mg PO BID-QID PRN 120 caps 6RF abdominal distention Coding Level of Care Code Est Pt Level 3 (82527) Diagnoses GERD (gastroesophageal reflux disease) K21.9 Irritable bowel syndrome with both constipation and diarrhea K58.2
[2025-06-14 11:33] VITALS: BP 131/80; PULSE 69; BMI 31.5
--- OUTSIDE RECORDS SUMMARY | 2025-06-14 13:40 | XMS_ITS | Clinical Summary ---
Author Organization [facility] PPI [facility] Address [address] [address] Phone Care Team Providers Care Technical Spec Name Role Phone Ashley Macario MD Primary Care Provider [phone] Allergies Active Allergy Reactions Criticality Noted Date Comments Lfkisho-Qfb-Kqm Reductase Inhibitors 07/25/2021 Other Reaction(s): Myalgia and Joint Pain Medications acetaminophen (TYLENOL 8 HOUR) 650 mg 8 hr tablet Take 650 mg by mouth as needed. Active ALPRAZolam (XANAX) 0.5 mg tablet as needed. 9 Active aspirin 81 mg EC tablet Take 1 tablet (81 mg total) by mouth 1 (one) time each day. 9 Active gabapentin (NEURONTIN) 100 mg capsule Take by mouth. 1 cap in the morning & 2 caps in the evening Active metFORMIN XR (GLUCOPHAGE-XR) 500 mg 24 hr tablet Take 1 tablet (500 mg total) by mouth 2 (two) times a day. 9 Active pantoprazole (PROTONIX) 40 mg EC tablet Take 40 mg by mouth daily. Active tamsulosin (FLOMAX) 0.4 mg 24 hr capsule Take 1 capsule (0.4 mg total) by mouth 1 (one) time each day. Active psyllium seed, with sugar, (FIBER ORAL) 1 tsp daily Active nabumetone 1,000 mg tablet Take 1 tablet by mouth 2 (two) times a day. Active DULoxetine (CYMBALTA) [address] capsule Take 1 capsule (60 mg total) by mouth 1 (one) time each day. Do not crush or chew. Active cetirizine (ZyrTEC) 10 mg tablet Take 1 tablet (10 mg total) by mouth if needed for allergies. Active simethicone (MYLICON) 125 mg chewable tablet Chew 1 tablet (125 mg total) if needed for flatulence. Active furosemide (LASIX) 20 mg tablet Take by mouth. Active metoprolol succinate (TOPROL-XL) 50 mg 24 hr tabletIndications:C oronary artery disease involving [place] heart, unspecified vessel or lesion type, unspecified whether angina present,Hypertensio n, unspecified type,Ischemic cardiomyopathy TAKE 1 TABLET BY MOUTH ONCE DAILY - DO NOT CRUSH OR CHEW 100 tablet 2 Active Active Problems Problem Noted Date Diagnosed Date Fatigue 04/20/2024 Assessment & Plan (03/29/2025 9:48 AM EDT): Concern for sleep apnea. Ordered sleep study, but patient decided against it. Assessment & Plan (02/15/2025 3:44 PM EDT): Concern for sleep apnea. Will order sleep study. Coronary artery disease 07/25/2021 Overview (02/15/2025): February 2019 - NSTEMI status post stenting to mid RCA April 2020 - NSTEMI status post two vessel CABG with MONTE to LAD and left radial to diag Nuclear stress test 02/26/2022: No chest pain during the regadenoson infusion. No ischemic ECG changes during the regadenoson infusion. The attenuation corrected images showed evidence of a small in size and mild intensity fixed perfusion defect in the apex. No reversible perfusion defects to suggest ischemia. Normal TID. Gated images could not be obtained. Echocardiogram 02/21/2022: Normal left ventricular systolic function with a left ventricular ejection fraction of 55 to 60%. Normal LV regional wall motion. Normal RV size and function. No significant valvular disease. June 2024 Pharmacologic nuclear stress test showing mildly reduced LV systolic function LVEF 45%, no evidence of ischemia September 2024 - cardiac catheterization for shortness of breath showed mild luminal irregularities of the left main, DUCT INSTALLER of the mid LAD with 70% first diagonal, 30% in the distal left circumflex, mild diffuse disease of the RCA with patent previous stent and mild luminal irregularities of the ramus with patent MONTE to LAD and patent free radial graft to the first diagonal Assessment & Plan (03/29/2025 9:48 AM EDT): Catheterization from 2023 showed patent MONTE to LAD and left radial to diag with stable [place] disease. Last Nuclear stress test in June 2024 showed no ischemia. Echocardiogram from 2021 showed normalized LV systolic function with no RWMAs with updated echocardiogram showing mild LV dysfunction. No clear cut anginal symptoms. Symptoms resolved with diuresis. Continue with aspirin, metoprolol. Trial of dapagliflozin. We discussed risk reduction through lifestyle choices including healthy diet, routine exercise and weight management. Assessment & Plan (02/15/2025 3:44 PM EDT): Catheterization from 2023 showed patent MONTE to LAD and left radial to diag with stable [place] disease. Last Nuclear stress test in June 2024 showed no ischemia. Echocardiogram from 2021 showed normalized LV systolic function with no RWMAs. No clear cut anginal symptoms. His shortness of breath is not similar to his previous angina. Continue with aspirin, metoprolol. Trial of Entresto. We discussed risk reduction through lifestyle choices including healthy diet, routine exercise and weight management. Orders: ECG 12 lead Assessment & Plan (08/23/2024 2:04 PM EST): Patient has a history of coronary disease status post non-STEMI in February 2019 which resulted in stent placement to the mid RCA and status post non-STEMI in April 2020 that resulted in a coronary artery bypass graft x 2 (MONTE to LAD, left radial to diagonal). Patient has ongoing symptoms of dyspnea on exertion, chest discomfort that occurs intermittently at rest and occasionally describes as pressure with exertion. He also has been experiencing ongoing fatigue. And nuclear stress test was completed resulted as likely normal. Patient with ongoing symptoms and his history will proceed with left heart catheterization to further evaluate for ischemia. He will continue with aspirin, statin and beta-bianca. He was previously prescribed isosorbide mononitrate but did not start taking it as there was concern for interaction with his arthritis medication. Will uptitrate his metoprolol to 50 mg XL daily. Risks and benefits of coronary angiogram discussed with patient including the increased risk for bleeding and the less than 0.1% risk for [place], stroke or . The patient understands and wishes to proceed with coronary angiogram. All questions answered. Patient advised to seek emergency medical attention by calling 911 if they were to develop severe dyspnea, chest pain that did not resolve with rest or nitroglycerin, or if they were to faint. Hyperlipidemia 07/25/2021 Assessment & Plan (03/29/2025 9:48 AM EDT): Continue with atorvastatin. Assessment & Plan (02/15/2025 3:44 PM EDT): Continue with atorvastatin. Assessment & Plan (08/23/2024 2:04 PM EST): Continue on rosuvastatin 10 mg daily. Labs completed June 2024 showing an LDL of 59 which is within goal range. Hypertension 07/25/2021 Assessment & Plan (03/29/2025 9:48 AM EDT): Controlled. Continue with metoprolol. Assessment & Plan (02/15/2025 3:44 PM EDT): Controlled. Continue with metoprolol. Trial of Entresto. Assessment & Plan (08/23/2024 2:04 PM EST): Blood pressure is poorly controlled today 150/80. Metoprolol increased to 50 mg XL daily. states she will obtain home blood pressure cuff and monitor at home. Will continue to monitor. Ischemic cardiomyopathy 07/25/2021 Overview (03/29/2025): Echocardiogram 02/21/2022: Normal left ventricular systolic function with a left ventricular ejection fraction of 55 to 60%. Normal LV regional wall motion. Normal RV size and function. No significant valvular disease. June 2024 Pharmacologic nuclear stress test showing mildly reduced LV systolic function LVEF 45%, no evidence of ischemia 2024 - echocardiogram showing mild LV dysfunction LVEF 40-45% Assessment & Plan (03/29/2025 9:48 AM EDT): Echocardiogram from June 2022 showed normalized LV systolic function, but stress test showed newly depressed LV systolic function. Angiogram unrevealing and consistent with NICM. His symptoms including chest heaviness, exertional breathlessness and lightheadedness improved after a transient increased in diuretics. He did not tolerate the Entresto. He appears compensated on exam. Echocardiogram unchanged from last year - mild LV dysfunction. Continue with metoprolol. Trial of dapagliflozin. We reviewed heart failure management including low-sodium diet, symptom surveillance, daily weights and medication compliance. The patient is aware they may take extra diuretic for intermittent evidence of mild congestive signs and symptoms. If the increase of frequency of as needed diuretic becomes more regular than they will make our office aware. If the patient has weight gain over 3lbs in one day or 5lbs over several days, they are aware to contact our office. With any severe or sustained symptoms, they are aware to contact EMS via 911 and go to the emergency room. Assessment & Plan (02/15/2025 3:44 PM EDT): Echocardiogram from June 2022 showed normalized LV systolic function, but stress test showed newly depressed LV systolic function. Angiogram unrevealing and consistent with NICM. He appears compensated on exam. Continue with metoprolol. Trial of Entresto and BMP in one week. Consider adding SGLT2 inhibitor. We will update his echocardiogram. We reviewed heart failure management including low-sodium diet, symptom surveillance, daily weights and medication compliance. The patient is aware they may take extra diuretic for intermittent evidence of mild congestive signs and symptoms. If the increase of frequency of as needed diuretic becomes more regular than they will make our office aware. If the patient has weight gain over 3lbs in one day or 5lbs over several days, they are aware to contact our office. With any severe or sustained symptoms, they are aware to contact EMS via 911 and go to the emergency room. Assessment & Plan (08/23/2024 2:04 PM EST): Nuclear stress test from June 2024 showing a mildly reduced EF, an echocardiogram was completed approximately 2 weeks earlier showing a normal EF. Patient is euvolemic on exam. Will reassess with complete echocardiogram in several months. Encounters Date Type Department Care Team Description 03/29/2025 9:10 AM EDT Office Visit [facility] [address] [place] [address] Donaldo Guerra NP Coronary artery disease involving [place] heart, unspecified vessel or lesion type, unspecified whether angina present (Primary Dx); Ischemic cardiomyopathy; Hypertension, unspecified type; Hyperlipidemia, unspecified hyperlipidemia type; Chronic fatigue from Last 3 Months Surgical History Surgery Date Site/Laterality Comments CARDIAC CATHETERIZATION DONE ON 08/08/2024 AT [facility] INDICATIONS: Shortness of breath w/exertion Social History Tobacco Use Types Packs/Day Years Used Date Smoking Tobacco: Former Cigarettes Smokeless Tobacco: Never Tobacco Cessation:Counseling Given: Not Answered Alcohol Use Standard Drinks/Week Comments Not Currently 0 (1 standard drink = 0.6 oz pur e alcohol) Sex and Gender Information Value Date Recorded Sex Assigned at Male 06/29/2024 10:47 AM EDT Legal Sex Male 3:24 AM EST Gender Identity Male 06/29/2024 10:47 AM EDT Sexual Orientation Straight 06/29/2024 10 :47 AM EDT Obstetrics History Last Filed Vital Signs Vital Sign Reading Time Taken Comments Blood Pressure 118/76 03/29/2025 8:55 AM EDT Pulse 76 03/29/2025 8:55 AM EDT Temperature 37.2 C (99 F) 10/05/2024 9:27 AM EST Respiratory Rate 18 10/05/2024 9:27 AM EST Oxygen Saturation 97% 03/29/2025 8:55 AM EDT Inhaled Oxygen Concentration - - Weight 95.7 kg (211 lb) 03/29/2025 8:55 AM EDT Height 175.3 cm (5' 9 ) 03/29/2025 8:55 AM EDT Body Mass Index 31.16 03/29/2025 8:55 AM EDT Plan of Treatment Health Maintenance Due Date Last Done Comments Diabetes: Annual Foot Exam 1955 Diabetes: Annual Retina Eye Exam 1955 DTaP,Tdap,and Td Vaccines (1 - Tdap) 1965 Pneumococcal Vaccine: 50+ Years (1 of 1 - PCV) 1996 Zoster Vaccines (1 of 2) 1996 RSV Immunization Adult Patients (1 - 1-dose 75+ series) 2021 Cholesterol Screening (Lipid Panel) 09/14/2022 Falls Risk Assessment 09/14/2022 Hepatitis C Screening 09/14/2022 Medicare Annual Wellness Visit 09/14/2022 Social Influencers of Health Screening 09/14/2022 Diabetes: Annual Urine Albumin-Creatinine Ratio (uACR) 08/23/2024 Diabetes: Blood Sugar Control Test (HGBA1C) 08/23/2024 Depression Screening 10/06/2024 COVID-19 Vaccine ( season) 2025 08/31/2024, 10/01/2022, 02/23/2022, Additional history exists Influenza Vaccine (#1) 2025 07/07/2024, 2022 Diabetes: Annual GFR (Glomerular Filtration Rate) 02/15/2026 02/15/2025 Hypertension/CHF/CAD Annual BMP Blood Test 02/15/2026 02/15/2025 HIB Vaccines Aged Out No longer eligi ble based on patient's age to complete this topic HPV Vaccines Aged Out No longer eligi ble based on patient's age to complete this topic Hepatitis A Vaccines Aged Out No long er eligible based on patient's age to complete this topic Hepatitis B Vaccines Aged Out No long er eligible based on patient's age to complete this topic IPV Vaccines Aged Out No longer eligi ble based on patient's age to complete this topic MMR Vaccines Aged Out No longer eligi ble based on patient's age to complete this topic Meningococcal ACWY Vaccine Aged Out N o longer eligible based on patient's age to complete this topic Meningococcal B Vaccine Aged Out No l onger eligible based on patient's age to complete this topic RSV Immunization Patients Under 20 months Aged Out No longer eligible based on patient's age to complete this topic Varicella Vaccines Aged Out No longer eligible based on patient's age to complete this topic Procedures Procedure Name Priority Date/Time Associated Diagnosis Comments BASIC METABOLIC PANEL Routine 02/15/2025 10:07 AM EDT Shortness of breath from Last 3 Months or Most Recently Relevant to Health Maintenance Results * (ABNORMAL) Basic metabolic panel (02/15/2025 10:07 AM EDT) Glucose 201(H) 70 - 99 mg/dL [facility] Blood Urea Nitrogen (BUN) 16 8 - 27 mg/dL [facility] Creatinine 1.51(H) 0.76 - 1.27 mg/dL [facility] 1 eGFR 47(L) >59 mL/min/1.7 3 [facility] 1 BUN/Creatinine Ratio 11 10 - 24 [facility] 1 Sodium 141 134 - 144 mmol/L [facility] 1 Potassium 4.0 3.5 - 5.2 mmol/L [facility] 1 Chloride 103 96 - 106 mmol/L [facility] 1 Carbon Dioxide 19(L) 20 - 29 mmol/L [facility] 1 Calcium 10.6(H) 8.6 - 10.2 mg/dL [facility] 1 Comment:Verified by repeat analysis Blood Venous blood specimen / Unknown 02/15/2025 10:07 AM EDT 02/15/2025 Narrative [facility] 1 - 02/16/2025 1:06 AM EDT Performed at: 01 - [facility] [address] [id number] Medical Imaging Tech: Anette Vogel MD, Phone: [phone] Donaldo Guerra NP LAB BLOOD ORDERABLES Final Result Performing Organization Address City/State/[facility] Co de Phone Number [facility] 1 from Last 3 Months or Most Recently Relevant to Health Maintenance Additional Health Concerns Infection Onset Date Last Indicated Streptococcus Group A 10/05/2024 10/05/[address] [facility] MEDICARE Care Teams Technical Spec Relationship Specialty Start Date End Date Ashley Macario MD [address] [place] [address] PCP - General Internal Medicine 08/23/24
== END 2025-06-14 16:02 | disposition home or self-care (01) ==
LOC: HO.HGI 11:17
PROVIDERS: PCP Internal Medicine; Visit Provider Nurse Practitioner
DX: K21.9 Gastro-esophageal reflux disease without esophagitis (principal); K58.2 Mixed irritable bowel syndrome
CPT/HCPCS: 99213

== ENCOUNTER → 2025-06-14 11:17 | Outpatient (BNVA) | payer MEDICARE, SELFPAY | PROVIDERS: PCP Internal Medicine; Visit Provider Nurse Practitioner | DX: K21.9 Gastro-esophageal reflux disease without esophagitis (principal); K58.2 Mixed irritable bowel syndrome; K40.20 Bilateral inguinal hernia, without obstruction or gangrene, not specified as recurrent; R10.33 Periumbilical pain; Z79.82 Long term (current) use of aspirin | CPT/HCPCS: 99212 ==